=== PATIENT | female | born 1985 | race Caucasian/White ===

== ENCOUNTER 2018-04-06 11:30 | Observation (INO) | payer OTHER ==
[2018-04-06 12:32] LABS: BILIRUBIN,URINE NEGATIVE (NEG); CLARITY,URINE CLEAR; COLOR,URINE YELLOW; NITRITE,URINE NEGATIVE (NEG); PH,URINE 7.5; PROTEIN,URINE NEGATIVE (NEG-TRACE); UROBILINOGEN,URINE 0.2 mg/dL (0.2 mg/dL)
[2018-04-06 12:34] LABS: BARBITURATES NEG (NEG); BENZODIAZEPINES NEG (NEG); CANNABINOIDS POS (NEG); COCAINE NEG (NEG); METHADONE NEG (NEG); OPIATES NEG (NEG); PHENCYCLIDINE NEG (NEG)
[2018-04-06 12:36] LABS: AMPHETAMINE/METHAMPHETAMINE NEG (NEG)
[2018-04-06 12:40] LABS: BACTERIA,URINE MODERATE /HPF (0-FEW); SQUAMOUS EPITHELIAL CELL,UR MANY /LPF
[2018-04-06 12:42] LABS: RBC,URINE OCC /HPF (0-2); TRICHOMONAS,URINE PRESENT
[2018-04-06 13:30] LABS: BASO % 0 % (0-3); EOS # 0.1 x10^3/uL (0.0-0.7); EOS % 1 % (0-3); HEMATOCRIT 32.2 % (36.0-47.0); HEMOGLOBIN 10.8 g/dL (12.0-15.5); LYMPH # 1.7 x10^3/uL (1.0-4.8); LYMPH % 20 % (24-48); MEAN CORPUSCULAR HEMOGLOBIN 28 pg (25-35); MEAN CORPUSCULAR HGB CONC 34 g/dL (31-37); MEAN CORPUSCULAR VOLUME 84 fL (79-100); MONO # 0.6 x10^3/uL (0.0-1.1); MONO % 7 % (0-9); NEUT # 6.4 x10^3uL (1.8-7.7); NEUT % 72 % (31-73); PLATELET COUNT 400 x10^3/uL (140-400); RED BLOOD COUNT 3.85 x10^6/uL (3.50-5.40); RED CELL DISTRIBUTION WIDTH 16.8 % (11.5-14.5); WHITE BLOOD COUNT 8.8 x10^3/uL (4.0-11.0)
[2018-04-06 13:52] LABS: ALBUMIN 2.5 g/dL (3.4-5.0); ALBUMIN/GLOBULIN RATIO 0.5 (1.0-1.7); CALCIUM 9.1 mg/dL (8.5-10.1); CREATININE 0.6 mg/dL (0.6-1.0); GFR 116.6; POTASSIUM 4.3 mmol/L (3.5-5.1); TOTAL BILIRUBIN 0.4 mg/dL (0.2-1.0); TOTAL PROTEIN 7.2 g/dL (6.4-8.2)
--- NOTE | 2018-04-06 15:00 | RAD ---
OB ultrasound study greater than 14 weeks. Clinical indications: Check well-being. FINDINGS: A single intrauterine fetus is seen in breech presentation. heart rate is 143 bpm. BPD is 7.74 cm which equals 31 weeks 0 days. HC is 29.03 cm which equals 32 weeks 0 days. AC is 30.09 cm which equals 34 weeks 0 days. FL is 6.81 cm which equals 35 weeks 0 days. Average gestational age by ultrasound is 33 weeks 0 days +/- 3 weeks with an EDC of May 25, 2018. LMP is June 08, 2017 which corresponds to a gestational age of 43 weeks 1 day with an EDC of March 15, 2018. The patient reported that she had a sonogram in [facility] when she was 16 weeks along and the due date of March 15, 2018 was given. Estimated weight is 5 lbs. 0 oz. The anatomy was not evaluated. ELISEO is low measuring 3.9 cm. Cervical length is 5.0 cm. Grade 2 fundal placenta is seen and no placenta previa and no placenta abruptio is identified. IMPRESSION: Oligohydramnios with an ELISEO of 3.9 cm. Single IUP in breech presentation with approximate gestational age of 33 weeks 0 days with an EDC of May 25, 2018. Based on clinical parameters as discussed above, the growth may be delayed i.e. intrauterine growth retardation. Note-the assembler truck trailer gave the results to the L&D nurse immediately after completion of the study. Electronically signed by: Yadiel Machado MD (04/06/2018 2:57 PM) [facility]
--- NOTE | 2018-04-06 15:25 | PDOC1 ---
OB - History Hx of Present Care: Limited Care Ultrasounds: Abnormal US findings (IUGR) Obstetrical Complications: None Medical Complications: None Past Family/Social History * Past Medical, Surgical, Family and Obstetric Histories reviewed from chart. Blood Type: AB+ Rubella: Immune RPR/VDRL: Negative GBS Status: Unknown HBsAG: Negative OB - Chief Complaint & HPI Date of Admission: Date of Admission: Apr 06, 2018 at 11:30 Chief Complaint/History : 6 Para: 5 EDC: Mar 13, 2018 EGA: 43/3 Reason for admission: observation Admission Nurse Assessment Rev: Yes OB - Admission Exam Physical Exam HEENT: Normal, Nasal Mucosa Normal, Oropharynx Normal, Moist Membranes, Fontanelles Normal Heart: Regular Rate Lungs: Clear, Equal Abdomen: Gravid Extremities: Normal Pulses, No tenderness or swelling Reflexes: Normal Cervical Dilatation: 3cm Effacement: 75% Station: Ballotable Membranes: Intact Heart Rate: Normal Accelerations: Accelerations Present Contractions on Admission: >10 Minutes Apart Assessment/Plan Assessment/Plan 33 week by Ultrasound at [facility] Asymmetric IUGR Transfer to [facility] REGINO Vela AM, MD Apr 06, 2018 15:25
[2018-04-06] MEDS ORDERED: BETAMET ACET&NA PHOS 30 MG/5 ML VIAL. IM ONE (15:30)
== END 2018-04-06 14:30 | disposition home or self-care (01) ==
LOC: 3 SO LND 11:30
PROVIDERS: ADMIT Specialist; ATTEND Specialist
DX: O36.5930 Maternal care for other known or suspected poor fetal growth, third trimester, not applicable or unspecified (principal); Z3A.33 33 weeks gestation of pregnancy; Z79.899 Other long term (current) drug therapy
CPT/HCPCS: 36415; 76805; 80053; 80307; 81001; 83036; 85025; 86850; 86900; 86901; 87086; 87653; G0378; G0379; J0702; G0479